=== PATIENT | male | born 1980 | race Caucasian/White ===

== ENCOUNTER 2016-08-29 15:58 | Emergency (ER) | payer SELFPAY ==
--- NOTE | ~2016-08-29 | CT4 ---
[facility] A Service of [facility] RADIOLOGY TEXT RESULTS PATIENT: BETHEL MARIE LOCATION: SED : [birth year] UNIT #: [id number] AGE: [address]: John Justin MD SEX: M ORDER DR: [id number] [place] [id number] E MR#: [id number] Acc #: [id number] NAME: BETHEL MARIE : 1980 SEX: M STUDY DATE/TIME: 08/29/2016 17:06 UNIT: SED ROOM: STUDY DESCRIPTION: CT Abd and Pelv Wo Cont Attending Physician: John Justin M.D. Ordering Physician: John Justin M.D. Primary Care Physician: Primary Care Physician No MEDICAL IMAGING REPORT This report is preliminary unless electronic signature is present. EXAM CT scan of the abdomen and pelvis without contrast 08/29/2016 HISTORY Right flank pain for 3 days, evaluate for obstructing renal calculus. TECHNIQUE Spiral CT was performed through the abdomen and pelvis without oral or intravenous contrast administration using renal stone protocol. This CT exam was performed with one or more of the following radiation dose reduction techniques: Automatic exposure control, adjustment of mA and/or kV according to patient size, and iterative reconstruction. FINDINGS ABDOMEN: There is no obstructing renal or ureteral calculus. The kidneys are normal bilaterally. The visualized liver, spleen, pancreas, gallbladder and biliary tree and adrenal glands are normal. PELVIS FINDINGS: The gut, mesenteric and magen structures are normal. There is no free fluid in the abdomen or pelvis. The seminal vesicles are enlarged and there is a stable 2.2 cm cystic lesion, which is indeterminate, involving the right seminal vesicle. This is unchanged compared with previous CT scan dated 07/21/2014. Clinical correlation is recommended. The lung bases are normal. IMPRESSION 1. No obstructing renal or ureteral calculus. 2. Diffuse enlargement of the seminal vesicles bilaterally. There is a stable 2.2 cm indeterminate cystic lesion involving the right seminal vesicle compared with 07/21/2014. Clinical correlation recommended. [facility] A Service of [facility] RADIOLOGY TEXT RESULTS PATIENT: BETHEL MARIE [place] [facility] [place] [birth year] UNIT #: [id number] AGE: [address]: John Justin MD SEX: M ORDER DR: Dictated by... Néstor Dyer M.D. THIS IS AN ELECTRONICALLY VERIFIED REPORT Néstor Dyer M.D. at 08/30/2016 10:27 AM KRT/clay TD: 08/29/2016 22:27 JOB #: [id number] MEDICAL IMAGING REPORT Page 1 of 1
[~2016-08-29 15:58] MED LIST: CIPRO PO; DOLOBID500 MG PO; IBUPROFEN 200 MG PO; IBUPROFEN400 MG; IMODIUM2 MG PO; LORTAB 5-325 M1 EACH PO; MEDROL PO; NO MEDICATIONS; NORFLEX100 M1 PO; PEN-VEE K PO; PHENERGAN PO; PHENERGAN25 M1 PO; PREDNISONE PO; SKELAXIN PO; VICODIN 5/500 T1 TAB PO; VOLTAREN75 MG PO; ZITHROMAX; ZOFRAN PO
[2016-08-29 16:20] LABS: URINE SOURCE CLEAN CATCH
[2016-08-29 16:24] LABS: URINE APPEARANCE CLEAR; URINE BILIRUBIN NEG (NEG); URINE BLOOD NEG (NEG); URINE COLOR DK YELLOW; URINE GLUCOSE NEG (NORM); URINE KETONE NEG (NEG); URINE LEUKOCYTE ESTERASE NEG (NEG); URINE NITRATE NEG (NEG); URINE PROTEIN TRACE (NEG); URINE SPECIFIC GRAVITY 1.025 (1.003-1.035)
[2016-08-29 16:26] LABS: MICRO INDICATED? NO
== END 2016-08-29 18:54 | disposition home or self-care (01) ==
LOC: SED 15:58
PROVIDERS: Emergency Medicine
DX: R10.30 Lower abdominal pain, unspecified (principal); R11.2 Nausea with vomiting, unspecified; F17.200 Nicotine dependence, unspecified, uncomplicated
CPT/HCPCS: 36415; 74176; 81003; 96361; 96374; 96375; 96376; 99284; J1170; J1885; J2405

== ENCOUNTER 2017-01-12 19:24 | Emergency (ER) | payer SELFPAY ==
[~2017-01-12] VITALS: Ht 175.3 cm; Wt 70.3 kg
--- NOTE | ~2017-01-12 | CT55 ---
[facility] A Service of [facility] RADIOLOGY TEXT RESULTS PATIENT: BETHEL MARIE LOCATION: SED : [birth year] UNIT #: [id number] AGE: [address]: Nas Nails MD SEX: M ORDER DR: [id number] [place] [id number] E MR#: [id number] Acc #: [id number] NAME: BETHEL MARIE : 1980 SEX: M STUDY DATE/TIME: 01/12/2017 21:29 UNIT: SED ROOM: STUDY DESCRIPTION: CT Chest W Con Attending Physician: Nas Nails M.D. Ordering Physician: Nas Nails M.D. Primary Care Physician: Primary Care Physician No MEDICAL IMAGING REPORT This report is preliminary unless electronic signature is present. EXAM CT scan of the chest with contrast, 01/12/2017 HISTORY Chest pain and back pain status post fall off deck at 12:00 p.m. today, hit back and right leg; abrasions on back. TECHNIQUE Spiral CT was performed through the chest following intravenous contrast administration. This CT exam was performed with one or more of the following radiation dose reduction techniques: Automatic exposure control, adjustment of mA and/or kV according to patient size, and iterative reconstruction. FINDINGS There is a calcified granuloma measuring 1 cm in the right upper lobe. The lungs are otherwise clear. There is no significant thoracic adenopathy. The heart is normal in size. There are no pleural effusions. IMPRESSION Negative chest CT with contrast. Dictated by... Néstor Dyer M.D. THIS IS AN ELECTRONICALLY VERIFIED REPORT Néstor Dyer M.D. at 01/13/2017 2:15 PM KRT/clay TD: 01/13/2017 04:11 JOB #: [id number] [facility] A Service [facility] RADIOLOGY TEXT RESULTS PATIENT: BETHEL MARIE LOCATION: SED : [birth year] UNIT #: [id number] AGE: [address]: Nas Nails MD SEX: M ORDER DR: MEDICAL IMAGING REPORT Page 1 of 1
--- NOTE | ~2017-01-12 | CT2 ---
[facility] A Service of [facility] RADIOLOGY TEXT RESULTS PATIENT: BETHEL MARIE LOCATION: SED : [birth year] UNIT #: [id number] AGE: [address]: Nas Nails MD SEX: M ORDER DR: [id number] [place] [id number] E MR#: [id number] Acc #: [id number] NAME: BETHEL MARIE : 1980 SEX: M STUDY DATE/TIME: 01/12/2017 20:11 UNIT: SED ROOM: STUDY DESCRIPTION: CT Abd and Pelv W Cont Attending Physician: Nas Nails M.D. Ordering Physician: Nas Nails M.D. Primary Care Physician: Primary Care Physician No MEDICAL IMAGING REPORT This report is preliminary unless electronic signature is present. EXAM CT abdomen and pelvis with contrast, 01/12/2017 HISTORY 36-year-old male in the ED after injury tonight. Fell off of a deck, landing on right posterior back/flank. Pain and soft tissue abrasions. TECHNIQUE CT examination of the abdomen and pelvis was performed with IV contrast. This CT exam was performed with one or more of the following radiation dose reduction techniques: automatic exposure control, adjustment of mA and/or kV according to patient size, and iterative reconstruction. FINDINGS ABDOMEN FINDINGS: There is no evidence of acute traumatic injury within the abdomen or pelvis. Liver, spleen and kidneys are normal in appearance. No hematoma or other fluid collection is seen within the abdomen, pelvis or body wall. Abdominal aorta is normal in appearance. There is no visible acute fracture of the lower ribs, thoracolumbar spine, pelvis, sacrum or hips. No gallbladder distension or bile duct dilatation. Negative pancreas. Small bowel and colon are normal in caliber and appearance, as imaged. PELVIS FINDINGS: Urinary bladder, prostate and rectum are negative. No inguinal hernia or abdominal wall hernia. Limited lung base images are negative. No basilar pneumothorax or pleural effusion. IMPRESSION [facility] A Service of [facility] RADIOLOGY TEXT RESULTS PATIENT: BETHEL MARIE LOCATION: [facility] [place] : 78 UNIT #: [id number] AGE: [address]: Nas Nails MD SEX: M ORDER DR: Negative CT examination of the abdomen and pelvis. No evidence of acute traumatic injury. Dictated by... Mati Gonsales M.D. THIS IS AN ELECTRONICALLY VERIFIED REPORT Mati Gonsales M.D. at 01/13/2017 6:04 AM ERNIE/jose martin TD: 01/13/2017 05:07 JOB #: [id number] MEDICAL IMAGING REPORT Page 1 of 1
--- NOTE | ~2017-01-12 | CT122 ---
[facility] A Service of [facility] RADIOLOGY TEXT RESULTS PATIENT: BETHEL MARIE LOCATION: SED : 78 UNIT #: [id number] AGE: [address]: Nas Nails MD SEX: M ORDER DR: [id number] [address] [address] [id number] E MR#: [id number] Acc #: [id number] NAME: BETHEL MARIE. : 1980 SEX: M STUDY DATE/TIME: 01/12/2017 20:12 UNIT: SED ROOM: STUDY DESCRIPTION: CT Thoracic Spine Wo Cont Attending Physician: Nas Nails M.D. Ordering Physician: Nas Nails M.D. Primary Care Physician: Primary Care Physician No MEDICAL IMAGING REPORT This report is preliminary unless electronic signature is present. EXAM CT of the thoracic spine without contrast dated 01/12/2017. COMPARISON CT lumbar spine without contrast dated 01/12/2017, CT chest with contrast dated 01/12/2017. HISTORY Patient fell off deck and hit back along with right leg today. Abrasions in the back. Pain. FINDINGS CT of the thoracic spine was obtained without contrast in the axial plane followed by sagittal and coronal reformats. This CT exam was performed with one or more of the following radiation dose reduction techniques: Automatic exposure control, adjustment of mA and/or kV according to patient size, and iterative reconstruction. Vertebral body heights and alignment are preserved. There appears to be a hypodense line along the tip of the spinous process of T4 spinous process. It has no significant adjacent edema and is best seen in the sagittal and coronal images. It has a relatively chronic appearance. The remaining vertebrae are unremarkable. Concentric disc bulge is noted at T10-11 and, to a lesser degree, at T9-10. There is borderline amkb-bd-kjom canal stenosis at T10-11. Superimposed tiny right vrdloqlbtnwp-qz-vyernycip protrusion cannot be excluded. There is a calcified 1.0 x 1.2 cm right lung nodule suggestive of old granulomatous disease. IMPRESSION 1. There appears to be a fracture line along the posterior tip of the T4 spinous process. It is age indeterminant. No adjacent significant edema is seen. Correlate clinically with point tenderness to STS. [facility] A Service of [facility] RADIOLOGY TEXT RESULTS PATIENT: BETHEL MARIE LOCATION: [facility] [place] : 78 UNIT #: [id number] AGE: [address]: Nas Nails MD SEX: M ORDER DR: evaluate for acuity of this suspicious fracture line. There is, however, no displacement or significant abnormality involving anterior or middle columns of the thoracic spine. 2. There appears to be disc bulge with herniation at T10-11 and, to a lesser degree, at T9-10. Borderline uyot-ct-qiac canal stenosis is at T10-11. Dictated by... Danuta George M.D. THIS IS AN ELECTRONICALLY VERIFIED REPORT Danuta George M.D. at 01/13/2017 6:26 PM CPR/psc TD: 01/13/2017 04:16 JOB #: [id number] MEDICAL IMAGING REPORT Page 1 of 1
--- NOTE | ~2017-01-12 | CT98 ---
[facility] A Service of [facility] RADIOLOGY TEXT RESULTS PATIENT: BETHEL MARIE LOCATION: SED : 78 UNIT #: [id number] AGE: [address]: Nas Nails MD SEX: M ORDER DR: [id number] [place] [id number] E MR#: [id number] Acc #: [id number] NAME: BETHEL MARIE. : 1980 SEX: M STUDY DATE/TIME: 01/12/2017 21:13 UNIT: SED ROOM: STUDY DESCRIPTION: CT Lumbar Spine Wo Cont Attending Physician: Nas Nails M.D. Ordering Physician: Nas Nails M.D. Primary Care Physician: Primary Care Physician No MEDICAL IMAGING REPORT This report is preliminary unless electronic signature is present. EXAM CT of the lumbar spine without contrast, 01/12/[address] T-spine without contrast and CT abdomen and pelvis with contrast dated 01/12/2017. HISTORY Patient fell off deck and his back and right leg today. Abrasions on the back. This CT exam was performed with one or more of the following radiation dose reduction techniques: automatic exposure control, adjustment of mA and/or kV according to patient size, and iterative reconstruction. FINDINGS CT of the lumbar spine was obtained without contrast in the axial plane followed by sagittal and coronal reformats. Vertebral body heights and alignment are preserved. Intervertebral disc heights are intact. A 9 mm x 6.5 mm sclerotic lesion is noted in the left iliac bone. It is probably a bone island based on statistics and without any history neoplasm. Mild disc bulges from L3-4 to L5-S1 cannot be excluded. No canal stenosis or neural foraminal narrowing. Pre and paravertebral soft tissues are unremarkable IMPRESSION 1. No acute fracture or subluxation. 2. Minimal disc bulge could be present from the level of L3-4 to L5-S1 but there is no canal stenosis S1 but there is no canal stenosis or neural foraminal narrowing. [facility] A Service of [facility] RADIOLOGY TEXT RESULTS PATIENT: BETHEL MARIE LOCATION: [facility] [place] : 78 UNIT #: [id number] AGE: [address]: Nas Nails MD SEX: M ORDER DR: Dictated by... Danuta George M.D. THIS IS AN ELECTRONICALLY VERIFIED REPORT Danuta George M.D. at 01/13/2017 6:26 PM CPR/ljd TD: 01/13/2017 04:18 JOB #: [id number] MEDICAL IMAGING REPORT Page 1 of 1
[2017-01-12 20:32] LABS: BASOPHIL% 0.4 % (0-2.5); EOSINOPHIL# 0.2 X10e3 (0-0.7); EOSINOPHIL% 1.7 % (0.0-7.0); HEMATOCRIT 41.2 % (38.0-50.0); HEMOGLOBIN 14.1 gm/dL (13.0-16.0); LYMPHOCYTE# 2.5 X10e3 (1.0-3.5); MEAN CELL VOLUME 87.3 FL (83-96); MEAN CORPUSCULAR HGB CONC 34.3 g/dL (30-36); MEAN PLATELET VOLUME 7.6 FL (6.5-11.5); NEUTROPHIL# 7.2 X10e3 (1.5-7.1); NEUTROPHIL% 65.9 % (40-75); PLATELET COUNT 274 X10e3 (140-420); RED BLOOD COUNT 4.72 X10e (3.90-5.60); RED CELL DISTRIBUTION WIDTH 13.8 % (11.0-15.5); WHITE BLOOD COUNT 10.9 X10e3 (4.0-10.5)
[2017-01-12 20:35] LABS: DIFF IND NO
[2017-01-12 20:42] LABS: PROTHROMBIN TIME (PATIENT) 11.7 SECONDS (9.5-12.4)
[2017-01-12 20:49] LABS: ALBUMIN SERUM 4.2 g/dL (3.5-5.0); BILIRUBIN,TOTAL 0.6 mg/dL (0.2-2.0); BUN/CREATININE RATIO 18.88; CALCIUM SERUM 8.7 mg/dL (8.4-10.2); CREATININE SERUM 0.9 mg/dL (0.6-1.4); GLOM FILT RATE Estimated 108.7 mL/min (>60); PARTIAL THROMBOPLASTIN TIME 29.4 SECONDS (25.6-38.1); POTASSIUM 3.5 mmol/L (3.5-5.1); PROTEIN TOTAL SERUM 6.8 g/dL (6.0-8.3)
[2017-01-12 22:51] LABS: URINE SOURCE CLEAN CATCH
[2017-01-12 22:53] LABS: URINE APPEARANCE CLEAR; URINE BILIRUBIN NEG (NEG); URINE BLOOD NEG (NEG); URINE COLOR YELLOW; URINE GLUCOSE NEG (NORM); URINE KETONE NEG (NEG); URINE LEUKOCYTE ESTERASE NEG (NEG); URINE NITRATE NEG (NEG); URINE PH 5.5 (5-8); URINE PROTEIN NEG (NEG); URINE SPECIFIC GRAVITY 1.015 (1.003-1.035); URINE UROBILINOGEN 0.2 MG/DL (NORM)
[2017-01-12 22:54] LABS: MICRO INDICATED? NO
[2017-01-12 23:03] LABS: AMPHETAMINE NEG (NEG); BARBITURATES NEG (NEG); BENZODIAZEPINES NEG (NEG); COCAINE NEG (NEG); MARIJUANA POS (NEG); OPIATES POS (NEG); TRICYCLIC ANTIDEPRESSANTS NEG (NEG); U METHADONE NEG (NEG)
== END 2017-01-12 23:02 | disposition home or self-care (01) ==
LOC: SED 19:24
DX: S30.1XXA Contusion of abdominal wall, initial encounter (principal); F17.200 Nicotine dependence, unspecified, uncomplicated; Z88.8 Allergy status to other drugs, medicaments and biological substances; W10.9XXA Fall (on) (from) unspecified stairs and steps, initial encounter; Y92.69 Other specified industrial and construction area as the place of occurrence of the external cause
CPT/HCPCS: 36415; 71260; 72128; 72131; 74177; 80053; 80307; 81003; 85025; 85610; 85730; 96361; 96374; 99284; J1170; Q9967

== ENCOUNTER 2017-01-17 11:30 | Emergency (ER) | payer SELFPAY ==
[~2017-01-17] VITALS: Ht 175.3 cm; Wt 70.3 kg
--- NOTE | ~2017-01-17 | CR108 ---
[facility] A Service of [facility] RADIOLOGY TEXT RESULTS PATIENT: BETHEL MARIE LOCATION: SED : 78 UNIT #: [id number] AGE: [address]: Kalpana Little MD SEX: M ORDER DR: [id number] [place] [id number] E MR#: [id number] Acc #: [id number] NAME: BETHEL MARIE : 1980 SEX: M STUDY DATE/TIME: 01/17/2017 11:45 UNIT: SED ROOM: STUDY DESCRIPTION: CR Finger 2 View 2nd Lt Attending Physician: Kalpana Little M.D. Ordering Physician: Jazz Blackburn Pa-C Primary Care Physician: No Primary Care Physician MEDICAL IMAGING REPORT This report is preliminary unless electronic signature is present. EXAM Left second finger, 3 views, 01/17/2017, 1145 hours. CLINICAL HISTORY Patient suffered laceration with saw to second finger today. Pain. COMPARISON Left hand film, 09/11/2013. FINDINGS AP, lateral, and oblique views of the index finger demonstrate no fracture, dislocation, or radiopaque foreign body. IMPRESSION No fracture, dislocation, or radiopaque foreign body at the left index finger. Dictated by... Tete Castro M.D. THIS IS AN ELECTRONICALLY VERIFIED REPORT Tete Castro M.D. at 01/18/2017 9:27 AM ALEXYS/tiffani TD: 01/17/2017 17:15 JOB #: [id number] MEDICAL IMAGING REPORT Page 1 of 1
== END 2017-01-17 12:43 | disposition home or self-care (01) ==
LOC: SED 11:30
DX: S61.211A Laceration without foreign body of left index finger without damage to nail, initial encounter (principal); F17.200 Nicotine dependence, unspecified, uncomplicated; Z88.8 Allergy status to other drugs, medicaments and biological substances; W27.0XXA Contact with workbench tool, initial encounter; Y92.009 Unspecified place in unspecified non-institutional (private) residence as the place of occurrence of the external cause
CPT/HCPCS: 12001; 29130; 73140; 99283